=== PATIENT | male | born 1970 | race Caucasian/White ===

== ENCOUNTER 2021-01-28 16:29 | Emergency (ER) | payer OTHER ==
[~2021-01-28] VITALS: Ht 172.7 cm; Wt 86.4 kg
[2021-01-28 16:41] VITALS: BP 159/111; PULSE 81; TEMP 98.5
== END 2021-01-28 17:53 | disposition left against medical advice (07) ==
LOC: COL.ER 16:29
DX: M62.830 Muscle spasm of back (principal); F17.290 Nicotine dependence, other tobacco product, uncomplicated
CPT/HCPCS: J1885